=== PATIENT | male | born 1965 ===

== ENCOUNTER 2023-09-25 10:11 | Outpatient (CLI) | payer BC ==
[2023-09-25 11:33] LABS: #Monocytes 0.4 10x3/uL (0.0-1.1); #Neutrophils 2.7 10x3/uL (1.5-8.4); %Basophils 0.2 % (0.0-2.0); %Eosinophils 0.6 % (0.0-6.0); %Lymphocytes 40.6 % (18.0-47.0); %Neutrophils 49.9 % (40.0-75.0); Hematocrit 45.4 % (38.8-50.0); Hemoglobin 15.1 g/dL (13.5-17.5); Mean Corpuscular HGB CONC 33.3 g/dL (32.0-36.0); Mean Corpuscular Volume 90.3 fl (81.2-95.1); Mean Platelet Volume 9.5 fl (7.4-10.4); Platelet Count 254 10x3/uL (150-450); RBC Distribution Width 12.5 % (11.5-14.5); Red Blood Cell (RBC) Count 5.03 10x6/uL (4.32-5.72); White Blood Cell (WBC) Count 5.4 10x3/uL (3.5-10.5)
[2023-09-25 12:33] LABS: ALT (SGPT) 20 U/L (8-55); AST (SGOT) 22 U/L (5-34); Albumin 4.4 g/dL (3.5-5.0); Alkaline Phosphatase 40 U/L (40-110); Anion Gap 12 mmol/L (10-20); BUN (Urea Nitrogen) 19 mg/dL (8.4-25.7); Calc. Creatinine Clearance 0 mL/min (70-130); Carbon Dioxide 24 mmol/L (22-29); Chloride 106 mmol/L (98-107); Estimated GFR 102; Globulin 2.9 g/dL (2.4-3.5); Glucose 101 mg/dL (70-105); Potassium 4.5 mmol/L (3.5-5.1); Protein, Total 7.3 g/dL (6.0-8.3); Sodium 137 mmol/L (136-145)
== END 2023-09-25 10:12 | disposition home or self-care (01) ==
LOC: LABBT 10:11
PROVIDERS: ATTEND Surgery
DX: Z01.818 Encounter for other preprocedural examination (principal); K42.9 Umbilical hernia without obstruction or gangrene
CPT/HCPCS: 80053; 85025; 93005; 93010

== ENCOUNTER 2023-09-28 10:34 | Day surgery (SDC) | payer BC ==
[2023-09-25 10:55] VITALS: BMI 26.9
[2023-09-28] MEDS ORDERED: Lidocaine 1% MPF 2 ML VIAL ONE (11:50)
[2023-09-28] MEDS ORDERED: LevoFLOXacin 500 mg/D5W 100 ML BAG ONE (11:50)
[2023-09-28] MEDS ORDERED: Bupivacaine 0.25% HCL 30 ML VIAL ONE (14:10)
[2023-09-28] MEDS ORDERED: EPINEPHrine 1 MG/ML VIAL ONE (14:10)
[2023-09-28] MEDS ORDERED: fentaNYL PF 100 MCG/2 ML SYRINGE ONE (14:19)
[2023-09-28] MEDS ORDERED: PROPOFOL 200 MG/20 ML VIAL ONE (14:30)
[2023-09-28] MEDS ORDERED: Ketorolac Tromethamine 30 MG/ML VIAL ONE (14:30)
[2023-09-28] MEDS ORDERED: Ondansetron PF 4 MG/2 ML Vial ONE (14:30)
[2023-09-28] MEDS ORDERED: Lidocaine 1% PF 5 ML VIAL ONE (14:30)
[2023-09-28] MEDS ORDERED: Dexamethasone 20 MG/5 ML VIAL ONE (14:30)
[2023-09-28] MEDS ORDERED: PROPOFOL 20 ML ONE (14:40)
[2023-09-28] MEDS ORDERED: fentaNYL 50 mcg/mL 1 mL Vial ONE (15:47)
== END 2023-09-28 17:08 | disposition home or self-care (01) ==
LOC: SDC 10:34
PROVIDERS: ATTEND Surgery
PROC: 0WQF4ZZ Repair Abdominal Wall, Percutaneous Endoscopic Approach (ICD-10-PCS; principal; 2023-09-28)
DX: K42.9 Umbilical hernia without obstruction or gangrene (principal); I10 Essential (primary) hypertension; Z88.0 Allergy status to penicillin; Z79.899 Other long term (current) drug therapy
CPT/HCPCS: J0171; J1100; J1885; J1956; J2405; J2704; J3010; S0020